=== PATIENT | male | born 1955 | race Caucasian/White ===

== ENCOUNTER 2016-08-21 17:44 | Emergency (ER) | payer BC ==
[~2016-08-21] VITALS: Ht 167.6 cm; Wt 82.1 kg
[2016-08-21 17:45] VITALS: TEMP 36.6; Ht 167.6 cm; Wt 82.1 kg
[2016-08-21] MEDS ORDERED: ASPI81TA28 PO (18:10)
[2016-08-21] MEDS ORDERED: CLR10 PO (18:10)
[2016-08-21] MEDS ORDERED: PROPARACAINE HCL 0.5% OP SOLN 15 ML BTL OP STA (18:19)
[2016-08-21] MEDS ORDERED: ERYTHROMYCIN OP OINT 5 MG/GM 3.5 GM TUBE OP STA (19:02)
--- NOTE | 2016-08-21 19:06 | EMERGENCY ROOM VISIT NOTE ---
History First contact with patient: 18:02 Chief Complaint: EYE ASSESSMENT Stated Complaint: R EYE DOG SCRATCHED History of Present Illness The patient is a 61 year old male who presents to the Emergency Room via private vehicle with complaints of "right eye, dog scratched". The patient states he is referred to [facility]. He states that around 8 or 8:30 this morning he was laying in bed, when his 60 pound dog came up to him and struck his right eye. He states the dog was being playful. He notes that since then his eyes have become red and painful. He feels as though the area has been increasing blurriness. His tetanus is up-to-date, and the dog's immunizations are up-to-date including rabies. He rates the pain as a 2/10. He believes that at this time the vision is normal. Review of Systems A complete 6-point Review of Systems was discussed with the patient, with pertinent positives and negatives listed in the History of Present Illness. All remaining Review of Systems questions can be considered negative unless otherwise specified. Past Medical/Surgical History No pertinent past medical history. Family History No pertinent family history. Social History Smoking Status: Never Smoker Social History: No pertinent social history. Current/Historical Medications Scheduled Aspirin (Aspirin Ec), 81 MG PO DAILY Loratadine (Claritin), 10 MG PO DAILY Allergies Coded Allergies: No Known Allergies (Unverified , 08/21/16) Physical Exam Vital Signs Date Time Temp Pulse Resp B/P Pulse Ox O2 Delivery O2 Flow Rate FiO2 08/21/16 19:30 71 18 153/93 93 08/21/16 17:45 36.6 68 16 151/84 95 Room Air Right Eye Acuity: 20/40 with correction Left Eye Acuity: 20/15 with correction Pain Rating (0-10): 2.0 Physical Exam VITAL SIGNS - Vital signs and nursing notes were reviewed. GENERAL -61-year-old male appearing his stated age who is in no acute distress. Communicates well with provider and answers questions appropriately. HEAD - Normocephalic, Atraumatic. No Peters's Sign or Raccoon's Eyes. No depressed skull fractures palpable. EYES - PERRL with EOMI bilaterally. Sclera without noticeable foreign body or excoriations. Bulbar conjunctival injection noted in the right eye. There is subconjunctival hemorrhage of the right. Palpebral conjunctiva pink and moist with no injection or discharge noted. Brief fundoscopic exam demonstrates no AV- nicking, cotton wool spots, or flame hemorrhages. Slit lamp examination performed as further described. EARS - No deformities of external structures noted on gross examination bilaterally. Handle of malleus, umbo, cone of light, pars tensa/flaccid all easily visualized. NOSE - Midline and without cyanosis. Without discharge. MOUTH/OROPHARYNX - Without perioral cyanosis. Tongue midline with equal elevation of palate bilaterally. No tonsillar hypertrophy, erythema, or exudates noted. [] dentition noted. NECK - FROM assessed. No cervical lymphadenopathy noted. Slit Lamp Examination was performed of the right eye(s). Alcaine drops were applied to the affected eye(s) for proper anesthetization. The affected eye(s) were stained with Fluorescein stain to precipitate adequate visualization of any conjunctival/scleral excoriations or ulcers. The patient's face was comfortably rested on the chin guard of the slit lamp apparatus. The lights were dimmed and the affected eye(s) were thoroughly examined under microscopy using the blue light. There was uptake was present overlying the central axis of vision at the 4:00 region that appears to be superficial. Negative Sushma sign. There is also slight uptake of the fluorescein stain in the medial aspect of the sclera. Additionally, the eye(s) were examined under microscopy using the regular light. Close examination revealed no additional abnormalities. Patient tolerated the procedure well and no complications were met. Medical Decision & Procedures Medications Administered Medications (Trade) Dose Ordered Sig/Gopal Route Start Time Stop Time Status Last Admin Dose Admin Proparacaine HCl (Alcaine 0.5% Oph Soln) 2 drops NOW STAT OP 08/21/16 18:19 08/21/16 18:20 DC 08/21/16 18:19 2 DROPS Erythromycin (Erythromycin Oph Oint) 1 appln NOW STAT OP 08/21/16 19:02 08/21/16 19:04 DC 08/21/16 19:24 1 APPLN Medical Decision Patient was seen and evaluated as above. He presents with what appears to be trauma to the right eye from his dog. The dog's immunizations are up-to-date and the patient's tetanus is up-to-date as of today. He was referred her by medics [facility] over concern for corneal abrasion depth. My examination does not reveal a deep abrasion, and there is negative Sushma sign. There does not appear to be any globe rupture. The eye was then rinsed, Alcaine was used to anesthetize the eye. He tolerated this well. Erythromycin was then utilized to provide antibiotic coverage. He'll be prescribed erythromycin 4 times daily half-inch in the right eye for the next 5-7 days until he can see ophthalmology. He is to return if worsening. He was educated upon worrisome symptoms which to return, had questions prior to discharge, and was discharged home in good condition. In the evaluation and treatment of this patient, the following differential diagnoses were considered: Corneal Abrasion, Conjunctivitis, Eye Contusion, Globe Injury, Orbital Floor Injury (Blowout Fracture), Corneal Ulcer, Keratitis , Herpes Zoster Opthalmic, Blepharitis, Orbital Cellulitis, Iritis, Scleritis/ Episcleritis, Uveitis, Temporal Arteritis, Subconjunctival Hemorrhage. Impression Primary Impression: Corneal abrasion Departure Information Dispostion Home / Self-Care Condition GOOD Referrals Imtiaz Chavez D.O. (PCP) Theron Hayward MD Patient Instructions My [facility] Additional Instructions You have been treated in the Emergency Department today for your Corneal Abrasion. You have been prescribed Erythromycin Ophthalmic Ointment. This is an antibiotic ointment which will help prevent an infection from developing in your affected eye. You should apply a 1 cm ribbon of the ointment to the lower part of the affected eye 4 times per day for the next 7 days. For pain control, you can use the following [id number] medicines (if >12 yo): - Regular strength (325mg/tab) Tylenol (acetaminophen) 2 tabs every 4-6 hours as needed. Do not exceed 12 tablets in a 24 hour period. Avoid taking more than 3 grams (3000 mg) of Tylenol per day. This includes any other sources of acetaminophen you may take on a regular basis. - Regular strength (200 mg/tab) Advil (ibuprofen) 1-2 tabs every 4-6 hours as needed. Do not exceed a dose of 3200 mg per day. You should relax in a quiet, dark place for the rest of the day. You should wear sunglasses while outside for the next few days until your eyes are not as sensitive to the light. You should schedule a follow-up appointment in 2-3 days with your Primary Care Provider or established Eye Doctor (Child Study Team Director) for further evaluation and treatment of your Corneal Abrasion. Dr. Hayward Please call the commercial assistant first thing Tuesday morning to schedule follow- up. Return to the Emergency Department if your current symptoms worsen despite treatment course outlined above, or if you develop any of the following symptoms : intractable pain, visual disturbances, loss of vision, increased redness, swelling, drainage, or if you develop a fever. Please return to emergency department with any new/concerning symptoms.
[2016-08-21 19:30] VITALS: BP 153/93; PULSE 71; O2SAT 93
== END 2016-08-21 19:32 | disposition home or self-care (01) ==
LOC: C.EDB 17:44 → C.EDD 19:32
DX: S05.01XA Injury of conjunctiva and corneal abrasion without foreign body, right eye, initial encounter (principal); W54.1XXA Struck by dog, initial encounter; Z79.82 Long term (current) use of aspirin; Z79.899 Other long term (current) drug therapy